=== PATIENT | female | born 1955 | race African-American/Black ===

== ENCOUNTER 2019-03-07 20:23 | Inpatient (IN) ==
[2019-03-07 22:02] LABS: BASO# 0.02 X1000 (0.0-0.2); BASO% 0.3 % (0.0-0.8); EOS# 0.15 X1000 (0.0-0.7); EOS% 1.9 % (0.0-10.0); HEMATOCRIT 37.9 % (37.0-47.0); IMM GRAN# 0.01 X1000 (0.0-0.04); IMM GRAN% 0.1 % (0.0-0.5); LYMPH# 2.74 X1000 (1.2-3.4); LYMPH% 34.4 % (20.5-51.1); MCH 25.3 PG (27-31); MCHC 34.3 g/dL (33-37); MCV 73.7 FL (81-99); MONO# 0.47 X1000 (0.11-0.59); MONO% 5.9 % (1.7-9.3); MPV 11.2 FL (7.4-10.4); NEUT# 4.58 X1000 (1.4-6.5); NEUT% 57.4 % (42.2-75.2); PLT 190 X1000 (130-400); RBC 5.14 XMIL (4.2-5.4); RDW 15.4 % (11.5-14.5); WBC 7.97 X1000 (4.8-10.8)
[2019-03-07 22:17] LABS: INR 1.76; PROTIME 21.4 Seconds (11.0-16.0); PTT 32.6 Seconds (22.3-41.8)
[2019-03-07 22:31] LABS: ALBUMIN 4.2 g/dL (3.5-5.0); CALCIUM 9.5 mg/dL (8.8-10.2); CREATININE 1.5 mg/dL (0.5-0.9); POTASSIUM 4.3 mmol/L (3.5-5.1); TOTAL BILIRUBIN 0.3 mg/dL (0.20-1.00); TOTAL PROTEIN 7.5 g/dL (6.3-8.3)
[2019-03-07] MEDS ORDERED: LOVENOX 1 MG/KG SUBQ ONE (23:49)
[2019-03-08] MEDS ORDERED: LOVENOX SUBQ ONE (00:15)
[2019-03-08] MEDS ORDERED: ZOFRAN PO PRN (00:40)
[2019-03-08] MEDS ORDERED: TYLENOL PO PRN (00:40)
[2019-03-08] MEDS ORDERED: NS 1,000 ML IV ONE (00:40)
[2019-03-08] MEDS ORDERED: NORCO-7.5 PO ONE (00:43)
--- NOTE | 2019-03-08 00:49 | PROVIDER DOCUMENTATION ---
This chart was entered by Kate Guerrero Scribe, acting as scribe for Gilberto Reyes DO. HPI-Respiratory General - General Chief Complaint: Breast Pain Stated Complaint: CP/LUNG BLOOD CLOTS Time Seen by Provider: 03/07/19 20:45 Source: patient Allergies/Adverse Reactions: Patient Allergies Allergy/AdvReac Type Severity Reaction Status Date / Time aspirin Allergy Intermediate asthma Verified 03/07/19 20:47 attack Iodinated Contrast- Oral and AdvReac Unknown Verified 03/07/19 20:47 IV Dye [IV Dye] Home Medications: Home Medication List Medication Instructions Recorded Confirmed Last Taken Type Alprazolam [Xanax] 1 mg PO BID 05/10/14 03/08/19 01/06/16 09:00 History Albuterol Sulfate [Proair Hfa] 2 puff IH PRN PRN 12/15/14 03/08/19 12/08/15 09:00 History Insulin Detemir [Levemir Flextouch] 32 unit SQ HS 01/11/15 03/08/19 01/05/16 21:00 History Insulin Regular, Human [Novolin R] 1 each SUBQ DIRECTED 01/11/15 03/08/19 12/12/15 07:00 History Docusate Sodium [Colace] 100 mg PO BID #60 capsule 05/14/15 03/08/19 01/06/16 09:00 Rx Budesonide [Pulmicort] 0.25 mg INH PRN PRN 12/08/15 03/08/19 01/06/16 10:00 History Cilostazol [Pletal] 50 mg PO BID 12/08/15 01/07/16 01/06/16 09:00 History Diclofenac 1% Gel [Voltaren 1% Gel] 4 gm TOP BID 12/08/15 03/08/19 01/06/16 09:00 History Furosemide 40 mg PO DAILY 12/08/15 01/07/16 01/06/16 09:00 History Potassium Chloride 10 meq PO DAILY 12/08/15 03/08/19 01/06/16 09:00 History Warfarin [Coumadin] 3 mg PO QHS 12/08/15 03/08/19 01/05/16 20:00 History Hydrocodone/APAP 7.5 mg/325 mg 1 each PO Q4H PRN PRN #60 tablet 12/17/15 01/07/16 Unknown Rx [[place]-7.5] Phytonadione [Mephyton] 1 each PO DIRECTED 01/07/16 01/07/16 01/03/16 14:15 History Polyethylene Glycol 3350 [Miralax] 1 each PO DAILY 01/07/16 01/07/16 01/06/16 09:00 History Hydrocodone/APAP 5 mg/325 mg 1 - 2 tab PO Q6H PRN PRN #10 tablet 03/15/16 03/08/19 Unknown Rx [[place]-5] Meclizine HCl [Antivert] 25 mg PO Q6-8H PRN PRN #30 tablet 05/02/16 03/08/19 Unknown Rx Albuterol [Albuterol Neb] 2.5 mg INH Q4H PRN PRN #30 neb 11/12/17 Unknown Rx Doxycycline 100 mg PO BID #20 tab 11/12/17 Unknown Rx Gabapentin [Neurontin] 300 mg PO TID #90 capsule 01/21/18 Unknown Rx - History of Present Illness-Resp Nature of Presenting Problem: 63 yof presents to ED c/o pain in right side of chest that radiates to back and SOB for about 3hours today. Pt reports she has previous hx of PE x2. Pt denies cough, fever or sinus problems. Pt has hx of COPD, asthma and DM. Severity in ED: reports: moderate Onset/Duration: reports: 1-3 hours ago Timing: reports: still present Cough Quality/Degree: reports: no cough Modifying Factors: worse with: deep breath Review of Systems - Adult - REVIEW OF SYSTEMS - ADULT Constitutional: reports: see HPI. denies: chills, fever, fatique Eyes: reports: no symptoms reported Ears, Nose, Mouth & Throat: reports: no symptoms reported Cardiovascular: reports: see HPI, chest pain, edema. denies: palpitations, syncope Respiratory: reports: see HPI, shortness of breath, wheezing. denies: cough Gastrointestinal: reports: no symptoms reported Genitourinary: reports: no symptoms reported Musculoskeletal: reports: see HPI, back pain. denies: muscle weakness Integumentary: reports: no symptoms reported Neurological: reports: no symptoms reported Psychiatric: reports: no symptoms reported Endocrine: reports: no symptoms reported Hematologic/Lymphatic: reports: no symptoms reported Allergic/Immunologic: reports: no symptoms reported All Other Systems: Reviewed and Negative Past History - Adult - PAST MEDICAL HISTORY-ADULT Review of Records: reports: Nursing Assessment Review, Medications Reviewed, Social history reviewed & non-contributory. Major Childhood Illnesses: reports: denies history Cardiovascular: reports: HTN, hyperlipidemia Respiratory: reports: asthma, COPD, sleep apnea Gastrointestinal: reports: diverticulosis Obstetrical/Gynecological: reports: denies history Genitourinary: reports: denies history Musculoskeletal: reports: arthritis (osteo) Neurological: reports: denies history Endocrine/Immune: reports: Diabetes Other Conditions: reports: denies history - PRIOR SURGERIES/PROCEDURES Surgical/Procedure History: reports: cholecystectomy, hysterectomy, orthopedic (extremity), gastric bypass - IMMUNIZATION STATUS Childhood Immunizations: See Nurse Assessment Flu Vaccine: See Nurse Assessment - FAMILY HISTORY Family History: reviewed, not pertinent Physical Exam-General - PHYSICAL EXAM-ADULT Initial Vital Signs Reviewed: Yes - CONSTITUTIONAL General Appearance: appears well - EYES Eyes: PERRL/EOMI, pink conjunctivae. negative: photophobia - HEAD, EARS, NOSE, MOUTH & THROAT HENMT: moist mucous membranes, normal ENT inspection. negative: angioedema, dental decay - NECK Neck: negative: Brudzinski's sign, carotid bruit - RESPIRATORY Respiratory: decreased breath sounds (base, bilaterally), wheezing (expiratory, bilaterally). negative: chest non-tender (costichondral sternal tenderness), crackles, rales - CARDIOVASCULAR Cardiovascular: regular rate, rhythm, no gallop, JVD (1cm), systolic murmur (1/6), PMI displaced laterally. negative: no edema, bradycardia, tachycardia - GASTROINTESTINAL (ABDOMEN) Abdominal Exam: normal bowel sounds, non tender, soft, no organomegaly. negative: rigid, rebound, tenderness - LYMPHATIC Lymphatic: no adenopathy. negative: striations - MUSCULOSKELETAL Back Exam: CVA tenderness (right), kyphosis, vertebral tenderness (L3,4,5;S1;Left si joint;right si joint(worse); Left siatica and right siatica with palpation) Extremity: tenderness (left inner thigh; 30 degree staright leg raise, left), other (+ martinez sign left; 42cm calf left; 40cm right calf) - SKIN Integumentary: warm/dry. negative: diaphoresis, jaundice - PSYCHIATRIC Psych/Mental Status: normal mood/affect, normal thought content, normal thought process, oriented x 3. negative: anxious - HEART Score HEART Score: History: Moderately Suspicious HEART Score: ECG: Normal HEART Score: Age: > or = 65 Years HEART Score: Risk Factors for Atherosclerotic Disease: > or = 3 Risk Factors or History of Atherosclerotic Disease HEART Score: Troponin: < or = Normal Limit Total HEART Score:: 5 Progress - PLAN OF CARE/RESULTS Progress/Plan/Lab Results: Vital Signs - 8 hr 03/07/19 20:28 03/07/19 20:46 Temperature 98 F Pulse Rate 80 82 Respiratory Rate 18 20 Blood Pressure 166/91 140/79 O2 Sat by Pulse Oximetry 98 97 Laboratory Results - last 24 hr 03/07/19 03/07/19 03/07/19 21:00 21:00 21:00 WBC 7.97 RBC 5.14 Hgb 13.0 Hct 37.9 MCV 73.7 L MCH 25.3 L MCHC 34.3 RDW Std Deviation 15.4 H Plt Count 190 MPV 11.2 H Immature Gran % (Auto) 0.1 Neut % (Auto) 57.4 Lymph % (Auto) 34.4 [place] % (Auto) 5.9 Eos % (Auto) 1.9 Baso % (Auto) 0.3 Immature Gran # (Auto) 0.01 Neut # (Auto) 4.58 Lymph # (Auto) 2.74 [place] # (Auto) 0.47 Eos # (Auto) 0.15 Baso # (Auto) 0.02 Segmented Neutrophils Not Reportable PT INR PTT (Actin FS) Sodium 138 Potassium 4.3 Chloride 101 Carbon Dioxide 25 Anion Gap 12 BUN 33 H Creatinine 1.5 H Estimated GFR/1.73 m2 35 BUN/Creatinine Ratio 22 Glucose 136 H Calculated Osmolality 285 Calcium 9.5 Total Bilirubin 0.30 AST 15 ALT 10 Alkaline Phosphatase 150 H Creatine Kinase 64 Troponin T Yuq-D-Tbuaulysyau Pept 295 Total Protein 7.5 Albumin 4.2 Globulin 3.0 Albumin/Globulin Ratio 1.0 03/07/19 03/07/19 21:00 21:00 WBC RBC Hgb Hct MCV MCH MCHC RDW Std Deviation Plt Count MPV Immature Gran % (Auto) Neut % (Auto) Lymph % (Auto) [place] % (Auto) Eos % (Auto) Baso % (Auto) Immature Gran # (Auto) Neut # (Auto) Lymph # (Auto) [place] # (Auto) Eos # (Auto) Baso # (Auto) Segmented Neutrophils PT 21.4 H INR 1.76 PTT (Actin FS) 32.6 Sodium Potassium Chloride Carbon Dioxide Anion Gap BUN Creatinine Estimated GFR/1.73 m2 BUN/Creatinine Ratio Glucose Calculated Osmolality Calcium Total Bilirubin AST ALT Alkaline Phosphatase Creatine Kinase Troponin T < 0.010 Npt-V-Xvvdxhlkmnl Pept Total Protein Albumin Globulin Albumin/Globulin Ratio Orders Category Date Time Status Admit - [facility] Routine AdmDCTranf 03/08/19 00:40 Active IV Insertion ORDERED Care 03/07/19 21:24 Completed Resuscitation Status Routine Care 03/08/19 00:40 Ordered Vital Signs Order ARRIVAL TO ROOM Care 03/08/19 00:40 Active Z-Document. for Tele Applied ORDERED Care 03/08/19 00:41 Active Diabetic Diet Diet 03/08/19 00:42 Active CHEST-PORTABLE [RAD] Stat Exams 03/07/19 21:21 Taken LUNG SCAN / VQ [NM] Stat Exams 03/08/19 00:43 Ordered CBC WITH ELECTRONIC DIFF [HEME] Stat Lab 03/07/19 21:00 Completed CK PROFILE [SP CHEM] Stat Lab 03/07/19 21:00 Completed COMPREHENSIVE METABOLIC PANEL [CHEM] Stat Lab 03/07/19 21:00 Completed PRO B-NATRIURETIC PEPTIDE Stat Lab 03/07/19 21:00 Completed PROTIME WITH INR [COAG] Stat Lab 03/07/19 21:00 Completed PTT [COAG] Stat Lab 03/07/19 21:00 Completed TROPONIN T Routine Lab 03/08/19 00:46 Ordered TROPONIN T Stat Lab 03/07/19 21:00 Completed TROPONIN T Stat Lab 03/08/19 00:46 Uncollected 0.9% Sodium Chloride Inj [Ns] 1,000 ml Med 03/08/19 00:40 Active IV 75 mls/hr Acetaminophen [Tylenol] Med 03/08/19 00:40 Active 650 mg PO Q6H PRN PRN Albuterol 2.5MG/Ipratrop 0.5MG [Duoneb (A & A)] Med 03/08/19 03:30 Active 3 ml INH RTQ4H Enoxaparin [Lovenox] Med 03/08/19 00:15 Discontinued 110 mg SUBQ NOW ONE Hydrocodone/APAP 7.5 mg/325 mg [[place]-7.5] Med 03/08/19 00:43 Discontinued 1 each PO NOW ONE Ondansetron [Zofran] Med 03/08/19 00:40 Active 4 mg PO Q6H PRN PRN Aerosol Treatments Routine Oth 03/08/19 00:42 Completed Aerosol Treatments Stat Oth 03/08/19 00:42 Completed Oxygen Device Routine Oth 03/08/19 00:41 Completed Telemetry [OM.EQ] Routine Oth 03/08/19 00:40 Active Transfer/Admit Order [TRANSFER] Routine Transfer 03/08/19 00:39 Ordered Result Diagrams: 03/07/19 21:00 03/07/19 21:00 - REASSESSMENT Reassessment #1 Time Reassessed: 00:39 Status: improving (WITH O2 NC-2LPM, NEB TX DISCUSSED LABS/XRAY WITH PATIENT -- DISCUSSED INPATIENT R/O PE PATIENT AGREES TO STAY FOR W/U) Departure - Departure Date of Disposition Decision: 03/08/19 Time of Disposition Decision: 00:35 DIAGNOSIS: Chest pain made worse by breathing COPD (chronic obstructive pulmonary disease) Qualifiers: COPD type: unspecified COPD Qualified Code(s): J44.9 - Chronic obstructive pulmonary disease, unspecified RAD (reactive airway disease) Qualifiers: Asthma severity: mild Asthma persistence: intermittent Asthma complication type: with acute exacerbation Qualified Code(s): J45.21 - Mild intermittent asthma with (acute) exacerbation Dvt femoral (deep venous thrombosis) Qualifiers: Chronicity: chronic Laterality: left Qualified Code(s): I82.512 - 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 The physician did have a face to face encounter with the patient. This chart was documented by the indicated scribe, (Kate Guerrero, Christy) and accurately reflects the services I performed and decisions made by , Gilberto Reyes DO, as attested by the provider's signature.
[2019-03-08] MEDS: DUONEB (A & A) INH SCH ×5 (03:31→20:08)
[2019-03-08 04:59] LABS: BILIRUBIN URINE NEGATIVE (NEGATIVE); BLOOD URINE NEGATIVE (NEGATIVE); CLARITY CLEAR (CLEAR); COLOR YELLOW; GLUCOSE URINE NEGATIVE (NEGATIVE); KETONE URINE NEGATIVE (NEGATIVE); LEUKOCYTES URINE 1+ (NEGATIVE); NITRITE URINE NEGATIVE (NEGATIVE); PH URINE 6.5; PROTEIN URINE NEGATIVE (NEGATIVE); UROBILINOGEN URINE NORMAL
[2019-03-08 05:00] LABS: URINE SOURCE CLEAN CATCH
[2019-03-08 05:02] LABS: URINE BACTERIA 1+ /HFP; URINE EPITHELIAL CELLS <10 /HPF (<10); URINE RBC <10 /HPF (<10); URINE WBC <10 /HPF (<10)
--- NOTE | 2019-03-08 07:47 | Diag Imaging Result Doc PS360 ---
CHEST-PORTABLE - 03/07/2019 INDICATION: CP/SOB COMPARISON: 11/26/2017 FINDINGS: There are some linear opacities in the lung bases bilaterally similar to prior. These suggests atelectasis or scarring. No dense infiltrates. No pneumothorax or pleural effusion. Heart size and pulmonary vascularity is normal. IMPRESSION: Linear atelectasis or scarring in the lung bases stable from prior. Electronically signed by Nate Cruz 03/08/2019 7:45 AM
[2019-03-08 13:58] LABS: INR 1.68; PROTIME 20.6 Seconds (11.0-16.0)
[2019-03-08] MEDS: NORCO-10 PO PRN (14:47)
[2019-03-08] MEDS ORDERED: DUONEB (A & A) INH PRN (14:50)
[2019-03-08] MEDS: LIDODERM TOP SCH (16:03)
--- NOTE | 2019-03-08 16:05 | HISTORY AND PHYSICAL ---
CHIEF COMPLAINT: Right breast pain. HISTORY OF PRESENT ILLNESS: This is a 63-year-old female who presents to the emergency room complaining of pain to her right breast area. She describes this pain as an aching type pain it is present that she rates is like a 2/10 with cough, deep breathe movement and palpation the pain does increase to a 4/10. She denies any recent injury, heavy lifting, pushing or pulling. She does have a history of a pulmonary embolus that was diagnosed in April 2015 for which she has been on warfarin. INR in the emergency room was 1.7. She was given Lovenox 1 mg/kg. PAST MEDICAL HISTORY: Pulmonary embolism, chronic back pain, hypertension, COPD, chronic obesity, diverticulosis, diabetes mellitus, sleep apnea. PREVIOUS SURGICAL HISTORY: Cholecystectomy, hysterectomy and gastric bypass. ALLERGIES: Aspirin, IVP dye. HOME MEDICATIONS: Home medication will be reviewed by the nursing staff and once verified will review and restart as appropriate. REVIEW OF SYSTEMS: Discussed with patient with pertinent positives stated in the HPI. She denied any syncope, dizziness, palpitations, shortness of breath, cough, PND, orthopnea, any nausea, vomiting, diarrhea, constipation, black or bloody vomitus or stools, any hematuria, dysuria, frequency, urgency. PHYSICAL EXAMINATION: GENERAL: This is a 63-year-old female who is sitting up in the bed in no distress. VITAL SIGNS: Blood pressure is 129/60 with a heart rate of 69, respirations are 18, temperature is 98.2 degrees oral with O2 saturations that are 100% on 1 L nasal cannula. HEENT: Pupils equal, round, react to light. EOMs are intact, sclerae anicteric. Head is normocephalic, atraumatic. Mucous membranes are moist. NECK: Supple, trachea midline. CARDIOVASCULAR: Regular rate and rhythm. S1 and S2 are appreciated. She does have about a 1 to 2/6 systolic murmur. She has no lower extremity edema. Calves are nontender to palpation bilateral with peripheral pulses palpable x4 extremities. PULMONARY: She does have some scattered expiratory wheezes. Chest rises and falls symmetric with respiration. Chest wall is tender to palpation, particularly on the right. GASTROINTESTINAL: Abdomen is soft, nontender, nondistended. Bowel sounds in all 4 quadrants. NEUROLOGIC: She is alert, oriented x3. LABS: WBC is 7.9 with hemoglobin 13, hematocrit 37.9 and platelets of 190,000. INR is 1.76. Sodium 138, potassium 4.3, BUN 33, creatinine 1.5 with a glucose of 136. Troponins are negative on multiple occasions. Urinalysis is essentially negative. Chest x-ray revealed linear atelectasis or scarring in lung bases stable from prior compared to November 2017. ASSESSMENT AND PLAN: 1. Chronic obstructive pulmonary disease, acute on chronic exacerbation. The patient has been admitted to the medical-surgical floor and placed on telemetry which will continue. We will give DuoNeb q.4 hours with q.2 hours p.r.n. as she has been wheezing, will give steroids to taper, supplemental oxygen as needed and follow. 2. Chest pain. This pain is pleuritic in nature. It can be reproduced by palpation, cough and deep breathing. She does have a history of chronic pain, at present will continue her [place] 10 mg 3 times a day p.r.n. Continue telemetry. 3. Chronic back pain. She is tender to palpation in the L3, 4, 5 and S1 vertebral areas. We will use lidocaine patch as well as her home pain medication regimen. Hopefully steroids will assist with this pain. 4. History of bilateral lower lobe pulmonary embolism. We will continue her warfarin, in review of her labs her INR was 1.7. Will give Coumadin 5 mg p.o. tonight. Recheck INR in the morning. 5. Further treatments pending hospital course. Dictated by IVONNE Caldwell for Clarence Zuñiga MD cc: IVONNE Caldwell MD
[2019-03-08] MEDS: SOLU-MEDROL IV SCH (16:07)
--- NOTE | 2019-03-08 18:52 | HISTORY AND PHYSICAL ---
ADDENDUM: Patient seen and examined. She has a known history of blood clots in her lungs. Presented to the hospital. Her INR is low. We will place her on Lovenox, replace her Coumadin, will increase the dose. We will continue to follow. Further orders as needed. cc: Clarence Zuñiga MD
[2019-03-08] MEDS ORDERED: COUMADIN PO ONE (21:00)
[2019-03-08] MEDS: COGENTIN PO SCH (21:17)
[2019-03-08] MEDS: XANAX PO SCH (21:17)
[2019-03-08] MEDS: PRAVACHOL PO SCH (21:17)
[2019-03-08] MEDS: LEVEMIR INSULIN *HA SUBQ SCH (21:24)
[2019-03-09] MEDS: SOLU-MEDROL IV SCH ×3 (00:20→16:25)
[2019-03-09] MEDS: NORCO-10 PO PRN ×2 (00:23→12:30)
[2019-03-09] MEDS: XANAX PO SCH ×3 (07:56→22:15)
[2019-03-09] MEDS: KLOR-CON PO SCH ×2 (07:57→08:04)
[2019-03-09] MEDS: LINZESS PO SCH ×2 (07:57→08:04)
[2019-03-09] MEDS: LASIX PO SCH ×2 (07:57→08:04)
[2019-03-09] MEDS: COZAAR PO SCH ×2 (07:57→08:04)
[2019-03-09] MEDS: LIDODERM TOP SCH (07:59)
[2019-03-09] MEDS ORDERED: ZOFRAN ODT PO PRN (10:16)
--- NOTE | 2019-03-09 12:27 | Diag Imaging Result Doc PS360 ---
KUB ABDOMEN - 03/09/2019 INDICATION: pain COMPARISON: 11/26/2017 FINDINGS: Stable surgical changes in the upper quadrants of the abdomen. There is a nonobstructive bowel gas pattern. No free air or abnormal calcifications. No significant constipation. IMPRESSION: No acute disease. Electronically signed by Nate Cruz 03/09/2019 12:25 PM
[2019-03-09 17:29] LABS: INR 1.89; PROTIME 22.6 Seconds (11.0-16.0)
[2019-03-09] MEDS ORDERED: LOVENOX SUBQ ONE (17:55)
--- NOTE | 2019-03-09 18:23 | PROGRESS NOTE ---
DATE: 03/09/2019 SUBJECTIVE: Patient still having left-sided pain, left hip pain, left flank pain, still having right-sided pain when she takes a deep breath or when she attempts to cough. PHYSICAL: Temperature 97.8, pulse 68, respiratory 20, BP 114/64.General: Patient is awake. She is in no current respiratory distress. HEENT: Normocephalic. Neck: Supple. CARDIOVASCULAR: Regular rate. Chest: Relatively clear, nonlabored although decreased due to pain with inspiration. Abdomen: Soft, nondistended. Extremities: Moves all extremities. ASSESSMENT: 1. Chronic obstructive pulmonary disease with questionable mild exacerbation. 2. Chest pain likely secondary to her known pulmonary emboli. 3. History of pulmonary emboli. INR remains low at 1.9. 4. Chronic back pain. 5. Left hip pain. PLAN: Will continue patient in hospital on Lovenox, continue to follow. Cannot unfortunately do a CT as she is allergic to IV contrast dye as well as has chronic renal failure. V/Q scan would most likely be of little use given the fact that she has a known pulmonary emboli. Hopefully patient's INR will increase and she can be discharged home soon. cc: Clarence Zuñiga MD
[2019-03-09] MEDS: PRAVACHOL PO SCH (22:15)
[2019-03-09] MEDS: LEVEMIR INSULIN *HA SUBQ SCH (22:16)
[2019-03-09] MEDS: COGENTIN PO SCH (22:17)
[2019-03-10] MEDS: NORCO-10 PO PRN ×2 (03:27→13:49)
[2019-03-10 07:02] LABS: HEMATOCRIT 34.6 % (37.0-47.0); HEMOGLOBIN 11.4 g/dL (12.0-16.0); MCH 24.9 PG (27-31); MCHC 32.9 g/dL (33-37); MCV 75.5 FL (81-99); MPV 11.5 FL (7.4-10.4); RBC 4.58 XMIL (4.2-5.4); RDW 15.5 % (11.5-14.5); WBC 6.04 X1000 (4.8-10.8)
[2019-03-10 07:39] LABS: ALBUMIN 3.4 g/dL (3.5-5.0); CALCIUM 8.9 mg/dL (8.8-10.2); CREATININE 1.2 mg/dL (0.5-0.9); POTASSIUM 4.2 mmol/L (3.5-5.1); TOTAL BILIRUBIN 0.3 mg/dL (0.20-1.00); TOTAL PROTEIN 6.7 g/dL (6.3-8.3)
[2019-03-10 07:43] LABS: PROTIME 23.6 Seconds (11.0-16.0)
[2019-03-10] MEDS: LIDODERM TOP SCH ×2 (09:50→09:57)
[2019-03-10] MEDS: XANAX PO SCH (09:50)
[2019-03-10] MEDS: LINZESS PO SCH ×2 (09:51→09:58)
[2019-03-10] MEDS: LASIX PO SCH (09:51)
[2019-03-10] MEDS: COZAAR PO SCH (09:51)
[2019-03-10] MEDS: KLOR-CON PO SCH (09:52)
[2019-03-10] MEDS: SOLU-MEDROL IV SCH ×4 (09:54→15:49)
[2019-03-10 15:20] VITALS: BP 115/61
--- NOTE | 2019-03-10 16:30 | Diag Imaging Result Doc PS360 ---
EXAM: CT THORAX W/O CONTRAST HISTORY: chest pain TECHNIQUE: CT chest without contrast COMPARISON: 05/09/2011 FINDINGS: No pleural effusions. No cardiomegaly. No thoracic aortic aneurysm. There is a 2.1 x 2.3 cm right lower lobe nodule on the current study. This appears to occlude one of the segmental bronchial branches in the right lower lobe. There is an additional oblong area which is more flat, but measures 1.3 x 2.1 cm occluding another branch anteriorly. There is atelectasis in the right lower lobe. No consolidation. No bronchiectasis. There is a left upper lobe calcified granuloma. There are small subcarinal lymph nodes. IMPRESSION: Right lower lobe nodular areas. Bronchoscopy suggested. This exam was performed using automated exposure control, adjustment of mA or kV according to patient size, and/or use of iterative reconstruction technique. Electronically signed by Catracho Hernandez 03/10/2019 4:28 PM
[2019-03-10] MEDS ORDERED: COUMADIN PO SCH (21:00)
--- NOTE | 2019-03-12 14:04 | DISCHARGE SUMMARY ---
ADMISSION DATE: 03/08/2019 DISCHARGE DATE: 03/10/2019 PRIMARY CARE PHYSICIAN: Dr. Jose G Brown. ADMISSION DIAGNOSES: 1. Acute on chronic obstructive pulmonary disease exacerbation. 2. Chest pain, pleuritic in nature. 3. Chronic back pain. 4. History of bilateral lower lobe pulmonary emboli subtherapeutic on anticoagulation. DISCHARGE DIAGNOSES: 1. Acute chronic obstructive pulmonary disease exacerbation, mildly improved. 2. Chest pain, pleuritic in nature and reproducible by palpation, cough and deep breathing with a history of chronic pain stable. 3. Chronic back pain. 4. History of bilateral lower lobe pulmonary emboli on chronic anticoagulation, now therapeutic. SUMMARY OF FINDINGS: This is a 63-year-old female who presented to the emergency room with complaints of pain to her right breast area. I described the pain as an aching type pain that she rated a 2/10 with cough and deep breath. With palpation, the pain increased to a 4/10. She had a history of pulmonary emboli that was diagnosed in April of 2015. She has been on Coumadin, but in the emergency room her INR was subtherapeutic at 1.7. We bridged her with Lovenox 1 mg/kg while still remaining on her Coumadin. Her INR came up to 2 on the day of discharge. She was felt to be therapeutic at that time. We did an abdominal x- ray on 03/09/2019 that showed no acute disease. She had a chest CT on 03/10/2019 that showed a right lower lobe nodular area, and a bronchoscopy was suggested. It is felt that she can follow up outpatient with her fish grader to follow up on that. It is felt now that she can safely be discharged home. DISCHARGE MEDICATIONS: 1. Alprazolam 1 mg p.o. b.i.d. 2. Cogentin 1 mg p.o. at bedtime. 3. Lasix 40 mg p.o. daily. 4. Bone Gap 10 1 p.o. t.i.d. p.r.n. 5. Bone Gap 5 1 to 2 p.o. q.6 hours p.r.n. 6. Levemir 32 units subcutaneous at bedtime. 7. Linzess 145 mcg p.o. daily. 8. Losartan 25 mg p.o. daily. 9. Meclizine 25 mg p.o. q. 6 to 8 hours p.r.n. 10. Potassium 10 mEq p.o. daily. 11. Pravachol 80 mg p.o. at bedtime. 12. Coumadin 3 mg p.o. at bedtime. FOLLOW-UP: She will have home health services. She will follow up with her primary care physician in 1 to 2 weeks. Follow up with pulmonology for possible bronchoscopy. Call to obtain date and time for an appointment. TIME SPENT WITH PATIENT: 33 minute discharge. Dictated by IVONNE Olmos for Javi Patterson MD Addendum: Patient seen and examined by myself. Agree with IVONNE note. It reflects my assessment and plan. Patient is being discharged in stable condition. Follow up with subspecialist as we mentioned above. cc: MD Pari Farmer CRNP Cesar Garcia-Rodriguez, MD [facility]
== END 2019-03-10 18:12 | disposition home health service (06) | DRG 204 ==
LOC: P.ED 20:23 → P.MEDSURG 20:23 → SUATTDRO 03-08 01:01 → OBSVTOIN 03-08 01:01
PROVIDERS: ATTEND Internal Medicine
CPT/HCPCS: 71010; 71045; 71250; 74000; 74018; 80053; 81001; 82550; 82948; 83880; 84484; 85025; 85027; 85379; 85610; 85730; 87088; 94640; 94761; 96372; 99285; A9270; J1650; J1815; J2930; J7030; XXXXX

== ENCOUNTER 2019-09-02 12:14 | Inpatient (IN) ==
--- NOTE | 2019-09-02 13:28 | PROVIDER DOCUMENTATION ---
HPI-General Adult - General Chief Complaint: Chest Pain Stated Complaint: CP Time Seen by Provider: 09/02/19 12:50 Source: patient, family Allergies/Adverse Reactions: Patient Allergies Allergy/AdvReac Type Severity Reaction Status Date / Time Iodinated Contrast Media Allergy Severe ANAPHYLAXIS Verified 08/09/19 08:49 [IV Dye] aspirin Allergy Intermediate asthma Verified 08/09/19 08:49 attack Home Medications: Home Medication List Medication Instructions Recorded Confirmed Last Taken Type Alprazolam [Xanax] 1.5 mg PO HS 08/09/19 08/27/19 08/26/19 History Benztropine Mesylate 1 mg PO DAILY 08/09/19 08/27/19 08/27/19 History Furosemide [Lasix] 60 mg PO DAILY 08/09/19 08/27/19 08/27/19 History Gabapentin [Neurontin] 100 mg PO BID 08/09/19 08/27/19 08/27/19 History Hydrocodone/APAP 10 mg/325 mg 1 ea PO Q6H PRN PRN 08/09/19 08/27/19 08/27/19 History [Rogers-10] Insulin Glargine,Hum.rec.anlog 132 units SQ HS 08/09/19 08/27/19 08/26/19 History [Lantus Solostar] Linaclotide [Linzess] 145 mcg PO DIRECTED PRN PRN 08/09/19 08/27/19 08/26/19 History Morphine Sulfate [Morphine Sulfate 15 mg PO HS 08/09/19 08/27/19 08/26/19 History ER] Omeprazole 40 mg PO DAILY 08/09/19 08/27/19 08/27/19 History Prochlorperazine Maleate 10 mg PO DIRECTED PRN PRN 08/09/19 08/27/19 Unknown History Promethazine [Phenergan] 12.5 mg PO DIRECTED PRN PRN 08/09/19 08/27/19 08/08/19 History - History of Present Illness -Gen Adult Nature of Presenting Problems: This is a 64yo female who presents with CC of chest pain and shortness of breath. The patient has a PMH of metastatic lung cancer, currrently recieving chemotherapy. The patient reports 2 day onset of central non radiating chest pain that is worse with movement. The patient reports remote history of AR, but denies needing stents. Location of Pain/Injury: reports: chest Pain Radiation: reports: no radiation Quality of Pain: reports: pressure, tightness Onset/Duration: reports: 2 days ago Timing: reports: still present Modifying Factors: improves with: movement (worse with walking, improves laying flat) Associated Symptoms: reports: nausea, other (sweats) Review of Systems - Adult - REVIEW OF SYSTEMS - ADULT Constitutional: reports: fever Eyes: reports: discharge Ears, Nose, Mouth & Throat: reports: no symptoms reported Cardiovascular: reports: chest pain, edema Respiratory: reports: shortness of breath Gastrointestinal: denies: abdominal pain Genitourinary: reports: no symptoms reported. denies: dysuria Musculoskeletal: reports: joint pain (with chemo) Integumentary: reports: rash (dry skin on LE) Neurological: reports: no symptoms reported Psychiatric: reports: no symptoms reported Endocrine: reports: no symptoms reported Hematologic/Lymphatic: reports: no symptoms reported Allergic/Immunologic: reports: no symptoms reported Past History - Adult - PAST MEDICAL HISTORY-ADULT Review of Records: reports: Old Records Reviewed Major Childhood Illnesses: reports: denies history Cardiovascular: reports: HTN, hyperlipidemia Respiratory: reports: asthma, COPD, cancer (lung), sleep apnea Gastrointestinal: reports: diverticulosis Obstetrical/Gynecological: reports: denies history Genitourinary: reports: denies history Musculoskeletal: reports: arthritis (osteo) Neurological: reports: denies history Psychiatric: reports: denies history Endocrine/Immune: reports: Diabetes, immunosuppression Other Conditions: reports: other cancer - PRIOR SURGERIES/PROCEDURES Surgical/Procedure History: reports: cholecystectomy, hysterectomy, orthopedic (extremity), gastric bypass - IMMUNIZATION STATUS Childhood Immunizations: See Nurse Assessment Flu Vaccine: See Nurse Assessment - FAMILY HISTORY Family History: reviewed, not pertinent Physical Exam-General - PHYSICAL EXAM-ADULT Exam Limited by: Obesity Initial Vital Signs Reviewed: Yes - CONSTITUTIONAL General Appearance: alert, no apparent distress - EYES Eyes: negative: conjuctival exudate - HEAD, EARS, NOSE, MOUTH & THROAT HENMT: normocephalic/atraumatic. negative: moist mucous membranes (dry mucous membranes) - NECK Neck: normal inspection - RESPIRATORY Respiratory: decreased breath sounds, wheezing (noted anterior) - CARDIOVASCULAR Cardiovascular: regular rate, rhythm, other (trace bilateral lower extremity edema) - GASTROINTESTINAL (ABDOMEN) Abdominal Exam: non tender, soft. negative: guarding - SKIN Integumentary: warm/dry - NEUROLOGIC Neurologic: grossly normal - PSYCHIATRIC Psych/Mental Status: normal mood/affect, normal thought content, normal thought process Progress - PLAN OF CARE/RESULTS Progress/Plan/Lab Results: Vital Signs - 8 hr 09/02/19 12:30 Temperature 97.8 F Pulse Rate 87 Respiratory Rate 16 Blood Pressure 121/68 O2 Sat by Pulse Oximetry 95 Orders Category Date Time Status CHEST-2 VIEWS [RAD] Stat Exams 09/02/19 13:24 Ordered BNP [PRO B-NATRIURETIC PEPTIDE] Stat Lab 09/02/19 13:26 Uncollected CBC WITH DIFF [HEME] Stat Lab 09/02/19 13:23 Uncollected CK PROFILE [SP CHEM] Stat Lab 09/02/19 13:23 Uncollected COMPREHENSIVE METABOLIC PANEL [CHEM] Stat Lab 09/02/19 13:23 Uncollected D-DIMER [COAG] Stat Lab 09/02/19 13:23 Uncollected TROPONIN T Stat Lab 09/02/19 13:23 Uncollected Result Diagrams: 09/02/19 14:12 09/02/19 14:12 - REASSESSMENT Reassessment #1 Status: other (Discussed case with Hospitalist team who requested V/Q ordered. V/Q has been ordered. Patient will be admited to the hospitalist team.) - EKG 1 EKG Read and Signed by:: Rasheed Dillon (Read/Input Dr. Walter) EKG Interpretation (*Must complete 3 of following elements*): Abnormal Rate: 81 Rhythm: sinus [place]: normal QRS: normal [place] Interval: normal ST Wave: normal Departure - Departure Date of Disposition Decision: 09/02/19 Time of Disposition Decision: 15:58 DIAGNOSIS: Acute dyspnea Chest pain Qualifiers: Chest pain type: unspecified Qualified Code(s): R07.9 - Chest pain, unspecified Disposition: ADMITTED INPATIENT 09 Certified Medical Emergency: Emergent Condition: Serious Referrals and Follow-Ups: Jose G Brown MD [Primary Care Provider] - - Critical Care Note This patient required my direct & personal management of CC.: No Attestation - Physician/ CHAZ Attestation Patient care was provided by Advanced Practice Provider:: No The physician spent face to face time with patient:: Yes Advanced Practice Provider documentation review:: Supervising physician onsite and consulted in the evaluation and care of this patient. The physician did have a face to face encounter with the patient.
--- NOTE | 2019-09-02 13:54 | Diag Imaging Result Doc PS360 ---
EXAM: CHEST-2 VIEWS 09/02/2019 HISTORY: chest pain and shortness of breath TECHNIQUE: PA and lateral chest COMMENT: There is a platelike opacity in the right middle lobe and lower lobe. The latter was not evident on 08/09/2019. Otherwise are has been no significant change in the appearance of the chest. IMPRESSION: Subsegmental atelectasis in the right base. Electronically signed by Kelvin Domingo 09/02/2019 1:52 PM
[2019-09-02 14:25] LABS: HEMATOCRIT 30.7 % (37.0-47.0); HEMOGLOBIN 9.7 g/dL (12.0-16.0); LYMPH# 0.65 X1000 (1.2-3.4); LYMPH% 15.9 % (20.5-51.1); MCHC 31.6 g/dL (33-37); MCV 88.5 FL (81-99); MONO# 0.08 X1000 (0.11-0.59); MPV 9.9 FL (7.4-10.4); NEUT# 3.37 X1000 (1.4-6.5); NEUT% 82.1 % (42.2-75.2); PLT 187 X1000 (130-400); RBC 3.47 XMIL (4.2-5.4); RDW 19.7 % (11.5-14.5)
[2019-09-02 15:07] LABS: ALB/GLOB RATIO 1.1; ALBUMIN 3.5 g/dL (3.5-5.0); CALCIUM 8.6 mg/dL (8.8-10.2); CREATININE 1.5 mg/dL (0.5-0.9); POTASSIUM 4.5 mmol/L (3.5-5.1); TOTAL BILIRUBIN 0.21 mg/dL (0.20-1.00); TOTAL PROTEIN 6.7 g/dL (6.3-8.3)
--- NOTE | 2019-09-02 15:08 | EKG Report ---
Test Performed on : 09/02/2019 12:44:19 PM Test Reason : CP Blood Pressure : / mmHG Vent. Rate : 081 BPM Atrial Rate : 081 BPM P-R Int : 176 ms QRS Dur : 078 ms QT Int : 396 ms P-R-T Axes : 055 007 019 degrees QTc Int : 460 ms Sinus rhythm. with premature atrial complexes. Low voltage QRS Cannot rule out Anterior infarct , age undetermined Abnormal ECG When compared with ECG of 09-AUG-2019 08:31, (Unconfirmed) premature atrial complexes. are now present Minimal criteria for Anterior infarct are now present Unconfirmed Result
[2019-09-02] MEDS ORDERED: DUONEB (A & A) INH ONE (15:11)
[2019-09-02] MEDS ORDERED: MORPHINE IV ONE (15:11)
[2019-09-02] MEDS ORDERED: TYLENOL PO PRN ×2 (15:39→15:46)
[2019-09-02] MEDS ORDERED: ZOFRAN IV PRN (15:39)
[2019-09-02] MEDS ORDERED: NS 1,000 ML IV SCH (15:45)
[2019-09-02] MEDS: HUMULIN R SUBQ SCH ×2 (16:00→22:42)
[2019-09-02] MEDS: DUONEB (A & A) INH SCH ×2 (16:00→22:19)
--- NOTE | 2019-09-02 19:14 | Diag Imaging Result Doc PS360 ---
EXAM: LUNG SCAN / VQ HISTORY: possible P.E. TECHNIQUE: Nuclear medicine ventilation/perfusion lung scan COMPARISON: Plain films taken earlier FINDINGS: 39.8 mCi DTPA used for the ventilation images. 5.8 mCi MAA given intravenously for the perfusion images. No wedge shaped perfusion defect. No ventilation perfusion mismatch. IMPRESSION: Low probability for pulmonary embolus. Electronically signed by Catracho Hernandez 09/02/2019 7:11 PM
--- NOTE | 2019-09-02 19:50 | HISTORY AND PHYSICAL ---
PRIMARY CARE PHYSICIAN: Jose G Brown MD ONCOLOGIST: Dr. lAlen CHIEF COMPLAINT: "I have been having chest pain and shortness of breath for the past 4 days." HISTORY OF PRESENT ILLNESS: Ms. Nix is a 64-year-old female with a history of metastatic lung cancer on chemotherapy, diabetes mellitus type 2, morbid obesity, and anxiety disorder who presented to the ER today with a chief complaint of increasing shortness of breath and chest pain over the last 4 days. The patient states that she has been having more chest pain and shortness of breath over the last several days. She also complains of increased lower extremity swelling and decreased urine output over the same period of time. The patient states that she has been receiving chemotherapy for her metastatic lung cancer diagnosis. She denies having any fever or chills, but does describe a mild cough occasionally. In the ER, the patient was noted to have a D- dimer of 1.59. Initial cardiac enzymes were noted to be negative. The patient reports that she is currently on Eliquis for a history of pulmonary embolism diagnosed in 2014. The patient states that she has she is compliant with all of her home medications. PAST MEDICAL HISTORY: 1. Metastatic lung cancer on chemotherapy. 2. Morbid obesity. 3. History of pulmonary embolism on Eliquis. 4. Hypertension. 5. Diabetes mellitus type 2. 6. Chronic constipation. 7. Anxiety disorder. 8. Chronic kidney disease stage 3. 9. COPD. 10. Port placement. 11. LAP-BAND surgery. 12. Shoulder surgery. FAMILY HISTORY: Reviewed and noncontributory. SOCIAL HISTORY: The patient lives alone. The patient quit smoking tobacco products 10 years ago. The patient currently ambulates with a cane. She denies any alcohol or illicit drug use. ALLERGIES: IV contrast dye, which causes anaphylaxis; aspirin, which causes asthma. HOME MEDICATIONS: The patient's home medications are not available. REVIEW OF SYSTEMS: A 12-point review of systems has been performed. Please refer to the History of Present Illness for pertinent positives and negatives. PHYSICAL EXAMINATION: VITAL SIGNS: Temperature 97.8 degrees, blood pressure 121/68, heart rate 87, respirations 16, and O2 saturation 95% on room air. GENERAL: This is a morbidly obese female lying in bed in no acute distress. HEENT: Head is normocephalic, atraumatic. SKIN: No rashes, no lesions. Normal capillary refill. HEART: S1 and S2 normal. Regular rate and rhythm. LUNGS: Equal air entry bilaterally. No wheezing. No rales. No rhonchi. ABDOMEN: Positive bowel sounds. Soft, nontender, nondistended. EXTREMITIES: There is 1+ edema bilaterally. No cyanosis NEUROLOGIC: The patient is alert and oriented x4. LABS: White blood cell count 4.1, hemoglobin 9.7, hematocrit 30, platelets 187,000. D-dimer 1.59. Sodium 139, potassium 4.5, chloride 101, CO2 of 27, BUN 22, creatinine 1.5, glucose 238, calcium 8.6, AST 16, ALT 10. Troponin less than 0.01. ProBNP 1363. Albumin 3.5. RADIOGRAPHS: Chest x-ray shows atelectasis in the right lung base. ASSESSMENT AND PLAN: 1. Chest pain. We will rule out myocardial infarction, as well as pulmonary embolism. Serial troponins and EKG have been ordered. Also, a V/Q scan has been done. The report is currently pending. The patient is allergic to aspirin. We will continue on Eliquis. The patient has been started on supplemental oxygen. 2. Uncontrolled diabetes mellitus type 2. We will start the patient on sliding scale insulin, as well as a diabetic diet. We will await the patient's home medication reconciliation and restart the Lantus once her dosage is known. 3. Anxiety disorder. Continue on Xanax. 4. Chronic constipation. We will start the patient on a laxative regimen. 5. Metastatic lung cancer. The patient is followed by Dr. Allen as outpatient. 6. Chronic obstructive pulmonary disease. Stable. We will start the patient on bronchodilator therapy. 7. Chronic kidney disease stage 3. Stable. cc: Adilia Keating MD MTDD
[2019-09-02] MEDS ORDERED: NORCO-10 PO PRN (19:53)
[2019-09-02] MEDS ORDERED: LINZESS PO PRN (19:53)
[2019-09-02] MEDS ORDERED: LANTUS INSULIN SUBQ SCH (21:00)
[2019-09-02] MEDS: XANAX PO SCH (22:40)
[2019-09-02] MEDS: NEURONTIN PO SCH (22:41)
[2019-09-02] MEDS: MS CONTIN PO SCH (22:41)
[2019-09-02] MEDS: ELIQUIS PO SCH (22:41)
[2019-09-03] MEDS: MORPHINE IV PRN ×5 (02:17→23:08)
[2019-09-03] MEDS: DUONEB (A & A) INH SCH ×4 (03:19→22:50)
[2019-09-03] MEDS: HUMULIN R SUBQ SCH ×3 (06:54→19:04)
[2019-09-03] MEDS: PROTONIX PO SCH (06:54)
[2019-09-03 07:23] LABS: HEMATOCRIT 28.9 % (37.0-47.0); HEMOGLOBIN 9.4 g/dL (12.0-16.0); MCH 29.1 PG (27-31); MCHC 32.5 g/dL (33-37); MCV 89.5 FL (81-99); MPV 10.8 FL (7.4-10.4); RBC 3.23 XMIL (4.2-5.4); RDW 19.8 % (11.5-14.5)
[2019-09-03 07:53] LABS: CALCIUM 8.5 mg/dL (8.8-10.2); CREATININE 1.4 mg/dL (0.5-0.9)
[2019-09-03 07:55] LABS: CHOLESTEROL 179 mg/dL (0-200); HDL 42 mg/dL (45-65); LDL 106 mg/dL; TRIGLYCERIDES 154 mg/dL (35-135); VLDL 31 mg/dL
[2019-09-03] MEDS ORDERED: LANTUS INSULIN SUBQ SCH ×2 (09:00→21:00)
[2019-09-03] MEDS: COGENTIN PO SCH (09:54)
[2019-09-03] MEDS: NEURONTIN PO SCH ×2 (09:55→21:13)
[2019-09-03] MEDS: ELIQUIS PO SCH ×2 (09:55→21:13)
[2019-09-03] MEDS: MS CONTIN PO SCH ×2 (09:55→21:13)
[2019-09-03] MEDS: LASIX PO SCH (09:59)
[2019-09-03] MEDS ORDERED: HUMALOG IV SCH (11:30)
[2019-09-03] MEDS ORDERED: HUMALOG SUBQ SCH (11:45)
[2019-09-03] MEDS: HUMALOG SUBQ SCH ×2 (12:06→21:15)
--- NOTE | 2019-09-03 12:36 | ECHO REPORT ---
ORDER DATE: 09/03/2019 INDICATION FOR STUDY: Chest pain, hypertension, shortness of breath. This is a difficult study. The patient refused Optison. Morbidly obese. FINDINGS: 1. The right atrium appears normal in size at 3.8 cm. 2. Trace tricuspid regurgitation. RV systolic pressure of 42. 3. Normal RV size and systolic function. 4. No significant pulmonic insufficiency. 5. Mild left atrial enlargement with a volume index of 29. 6. No mitral valve prolapse. No significant mitral regurgitation. No mitral stenosis. 7. Normal LV size, end-diastolic dimension of 4.7. Normal wall thicknesses with a posterior and interventricular septal wall thickness of 0.9 cm each. The LV systolic function appears normal and greater than 55%. Again, delineation of the endocardial borders due to lack of echo contrast was somewhat difficult. The patient refused this. 8. Aortic valve opens well. Trace insufficiency. No stenosis. 9. Aorta appears normal in visualized segments. 10. No pericardial effusion seen. 11. Compared to the echo on file from February of 2019 on this patient, there does not appear to have been any significant change. cc: MD Adilia Stein MD
--- NOTE | 2019-09-03 14:35 | HEMO/ONC CONSULTATION ---
DATE: 09/03/2019 REQUESTING PHYSICIAN: Adilia Keating MD We appreciate this consult. CHIEF COMPLAINT: Non-small cell lung cancer. HISTORY OF PRESENT ILLNESS: Ms. Nix is a very pleasant 64-year-old female, well known to Dr. 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 The patient is currently being treated with carboplatin and Taxotere. The patient was scheduled for cycle 4 day 15 of carboplatin and Taxotere yesterday. She was treated with Taxotere and then began to complain of chest pressure and shortness of breath. The patient experienced some relief; therefore, continuation of treatment was planned. However, the patient got up to go to the bathroom and experienced significant chest pressure and profound shortness of breath. 911 was called, and the patient was admitted to [facility] with chest pain to rule out myocardial infarction. PAST MEDICAL HISTORY: 1. Non-small cell lung cancer. 2. Peripheral vascular disease. 3. Chronic kidney disease. 4. Pulmonary embolism. 5. Hypertension. 6. Diabetes mellitus, type 2. 7. Chronic constipation. 8. Anxiety disorder. 9. COPD. PAST SURGICAL HISTORY: 1. Lap band surgery. 2. Shoulder surgery. FAMILY HISTORY: Negative for any hematologic or oncologic disease. SOCIAL HISTORY: The patient quit smoking cigarettes 10 years ago. She currently uses no alcohol, tobacco, or illicit drugs. MEDICATIONS ON ADMISSION: 1. Novolin NPH insulin. 2. Meclizine. 3. Lantus insulin. 4. Eliquis. 5. Alprazolam. 6. Lidocaine/prilocaine topical cream. 7. Magic Mouthwash. 8. Protonix. 9. Compazine. 10. Diflucan. 11. Neurontin. 12. Dexilant. 13. MS Contin. 14. [place]. 15. Neurontin. ALLERGIES: Aspirins and contrast dye. REVIEW OF SYSTEMS: A 14 point review of systems was obtained and is negative except for mentioned in HPI. PHYSICAL EXAMINATION: Ms Nix is a very pleasant, 64-year-old female lying supine in bed in no immediate distress.Vital Signs: Temperature 98.0 degrees, blood pressure 121/61, heart rate 94, respirations 16, O2 saturation is 94% on room air. HEENT: Normocephalic, atraumatic. Mucous membranes are slightly pale and moist. Sclerae are anicteric. Extraocular movements intact. Neck: Supple. Lungs: Clear to auscultation bilaterally. Chest expansion is equal bilaterally. Cardiovascular: S1, S2 heard without murmur, rub, or gallop. Abdomen: Nondistended. Nontender. Bowel sounds positive all quadrants. No rebound or guarding noted. Extremities: Without clubbing or cyanosis. The patient does have 1+ bilateral lower extremity edema. Dermatologic: No rashes, bruises, or lesions. Neurologic: The patient is awake, alert, and oriented x3. She has no focal deficit. DIAGNOSTIC STUDIES: Hemoglobin is 9.4, hematocrit 28.9, white blood cell count is 3.00, platelets 182,000. Sodium 140, potassium 4.0, chloride 103, CO2 is 25, BUN 24, creatinine 1.4, glucose is 262, calcium is 8.5. CK is 43, troponins are less than 0.010. V/Q scan reveals low probability for pulmonary embolus. Chest x-ray reveals subsegmental atelectasis in the right base. Echocardiogram is within normal limits. ASSESSMENT AND PLAN: 1. T4N2 stage IIIB [id number] lung cancer of squamous cell histology. The patient is currently being treated with carboplatin and Taxotere. She underwent a cycle 4 day 15 of Taxotere. She did not receive carboplatin. We will follow along and provide treatment when appropriate. 2. Chest pain. V/Q scan was negative. Echocardiogram is negative. Troponins have been within normal limits. 3. Uncontrolled diabetes mellitus, type 2. The patient is on sliding scale insulin. At this time, we will continue to monitor. 4. Anxiety disorder. The patient is on Xanax as prescribed. 5. Chronic constipation. The patient is on a bowel regimen at this time. 6. Chronic obstructive pulmonary disease without exacerbation. The patient continues on bronchodilators. 7. Chronic kidney disease, stage 3, stable at this time. We will follow along with you and make further recommendations pending outcomes. The above reflects the history, exam, assessment, and plan of Dr. Rawls. Dictated by IVONNE Norman for Xiomy Rawls MD cc: IVONNE Norman MD Katherine Takundwa, MD I have seen and examined the patient and the above note reflects my H&P, assessment and plan. Xiomy Rawls MD [facility]
--- NOTE | 2019-09-03 19:30 | PROGRESS NOTE ---
DATE: 09/03/2019 SUBJECTIVE: The patient is standing up in the bathroom. She states that she feels a little bit better today. OBJECTIVE: Vital Signs: Temperature 98.6, blood pressure 149/60, heart rate 81, respirations 16, O2 saturation 99% on room air. General: This is a morbidly obese female lying in bed in no acute distress. Heart: S1, S2 normal. Regular rate and rhythm. Lungs: Equal air entry bilaterally. No wheezing, no rales. Abdomen: Positive bowel sounds. Soft, obese, nontender, nondistended. Extremities: 1+ edema bilaterally. Neurologic: The patient is alert and oriented x4. LABORATORY DATA: White blood cell count 3, hemoglobin 9.4, hematocrit 28, platelets 182. Sodium 140, potassium 4, chloride 103. CO2 is 25, BUN 24, creatinine 1.4, glucose 260. Troponins negative x2. V-Q scan: Low probability for pulmonary embolus. Echocardiogram: EF of 55%. ASSESSMENT AND PLAN: 1. Chest pain. The patient ruled out for myocardial infarction and her ventilation/perfusion scan was negative. We will continue on the current cardiac medications. 2. Metastatic lung cancer. The patient is followed by Dr. Allen. 3. Morbid obesity. The patient has been counseled about weight loss and proper diet. 4. Diabetes mellitus type 2. Continue on the current insulin regimen. 5. Anemia. Stable. 6. Chronic diastolic congestive heart failure. Continue on diuretic therapy. 7. Chronic pain. Continue on MS Contin. 8. Chronic constipation. The patient is having regular bowel movements. We will continue on Linzess as needed. 9. Disposition: Will consult with physical therapy. Hopefully, the patient can be discharged home tomorrow. cc: Adilia Keating MD MTDTaylor
[2019-09-03] MEDS: XANAX PO SCH (21:13)
[2019-09-04] MEDS: DUONEB (A & A) INH SCH ×2 (03:32→09:52)
[2019-09-04] MEDS: MORPHINE IV PRN (06:19)
[2019-09-04] MEDS: PROTONIX PO SCH (06:19)
[2019-09-04 07:27] LABS: BASO# 0.01 X1000 (0.0-0.2); BASO% 0.2 % (0.0-0.8); EOS# 0.01 X1000 (0.0-0.7); EOS% 0.2 % (0.0-10.0); HEMATOCRIT 29.2 % (37.0-47.0); HEMOGLOBIN 9.2 g/dL (12.0-16.0); LYMPH# 1.48 X1000 (1.2-3.4); LYMPH% 35.9 % (20.5-51.1); MCHC 31.5 g/dL (33-37); MONO# 0.13 X1000 (0.11-0.59); MONO% 3.2 % (1.7-9.3); NEUT# 2.49 X1000 (1.4-6.5); NEUT% 60.5 % (42.2-75.2); PLT 190 X1000 (130-400); RBC 3.28 XMIL (4.2-5.4); RDW 19.9 % (11.5-14.5); WBC 4.12 X1000 (4.8-10.8)
[2019-09-04 07:34] VITALS: BP 102/51
[2019-09-04 07:54] LABS: ALB/GLOB RATIO 1.4; ALBUMIN 3.6 g/dL (3.5-5.0); CALCIUM 7.9 mg/dL (8.8-10.2); CREATININE 1.5 mg/dL (0.5-0.9); POTASSIUM 3.7 mmol/L (3.5-5.1); TOTAL BILIRUBIN 0.24 mg/dL (0.20-1.00); TOTAL PROTEIN 6.2 g/dL (6.3-8.3)
[2019-09-04] MEDS: LASIX PO SCH (09:19)
[2019-09-04] MEDS: MS CONTIN PO SCH (09:19)
[2019-09-04] MEDS: ELIQUIS PO SCH (09:20)
[2019-09-04] MEDS: NEURONTIN PO SCH (09:20)
[2019-09-04] MEDS: COGENTIN PO SCH (09:20)
[2019-09-04] MEDS: HUMALOG SUBQ SCH (09:20)
--- NOTE | 2019-09-04 14:38 | Extremity Venous Study ---
PROCEDURE NAME: Venous U/S Bilateral Legs - 09/03/2019 PROCEDURE PERFORMED: Bilateral lower extremity venous duplex and color flow imaging study using the Vaioni vivid E9 ultrasound System with a 9L-D transducer. REFERRING PHYSICIAN: Dr. Keating. PATIENT INFORMATION: A 64-year-old female. PANEL FITTER: Laura Harding RVT. INDICATIONS: Pain and edema, bilateral lower extremities, suggestive of deep venous thrombosis. FINDINGS: The right common femoral vein and its branches, deep and superficial femoral veins were satisfactorily imaged. They had flow through them and were compressible. Right popliteal vein and the deep veins below the right knee were all compressible and had flow through them. The superficial veins of the right lower extremity were compressible throughout their length. The left common femoral vein and its branches, deep and superficial femoral veins were also satisfactorily imaged. They had flow through them and were compressible. Left popliteal vein and the deep veins below the left knee were all compressible and had flow through them. The superficial veins of the left lower extremity were compressible throughout their length. INTERPRETATION: No evidence of acute deep or superficial venous thrombosis of the bilateral lower extremities. cc: MD Adilia Downey MD
--- NOTE | 2019-09-07 18:48 | DISCHARGE SUMMARY ---
ADMISSION DATE: 09/02/2019 DISCHARGE DATE: 09/04/2019 FINAL DISCHARGE DIAGNOSES: 1. Atypical chest pain. 2. Metastatic lung cancer. 3. Morbid obesity. 4. Diabetes mellitus type 2. 5. History of pulmonary embolism. 6. Chronic diastolic congestive heart failure. 7. Chronic pain. 8. Chronic constipation. CONSULTATION: Oncology consultation with Dr. Rawls. HOSPITAL COURSE: Ms. Nix is a 64-year-old female with a history of pulmonary embolism on anticoagulation, chronic constipation, morbid obesity, and metastatic lung cancer who presented to the ER with a chief complaint of chest pain. Cardiac enzymes and an EKG were performed that were noted to be negative. The patient was admitted to rule out NC and PE. A V/Q scan was done that revealed a low probability for PE. Also, venous Dopplers of the lower extremity were done that were noted to be negative for DVT. The patient's cardiac enzymes were also noted to be negative. She was ruled out for NC. Physical Therapy was consulted to assist with ambulation. By the following day, the patient was no longer having chest pain. She was ultimately cleared for discharge home on 09/04/2019. DISCHARGE MEDICATIONS: 1. Eliquis 5 mg oral twice a day. 2. Benztropine 1 mg oral daily. 3. Neurontin 100 mg oral twice a day. 4. [place] 10/325 one tab oral every 6 hours p.r.n. for pain. 5. Lantus 35 units subcutaneous at bedtime. 6. Linzess 145 mcg oral daily p.r.n. 7. Morphine sulfate ER 15 mg oral twice a day. 8. Omeprazole 40 mg p.o. daily. 9. Xanax 1.5 mg oral at bedtime. 10. Lasix 80 mg p.o. daily. 11. NovoLog sliding scale. DISCHARGE DIET: 1800 ADA diet. ACTIVITY: As tolerated. FOLLOWUP INSTRUCTIONS: The patient will need to follow up with Dr. Allen as scheduled by his clinic. The patient will need to follow up with her primary care physician in 2 weeks. cc: Adilia Keating MD
== END 2019-09-04 13:01 | disposition home health service (06) | DRG 313 ==
LOC: SUPCPDRO → ED 12:14 → EDIPHOLD 16:57 → 3N 22:01
PROVIDERS: ATTEND Internal Medicine

== ENCOUNTER 2019-10-03 11:53 | Inpatient (IN) ==
[2019-10-03 12:37] LABS: BASO# 0.02 X1000 (0.0-0.2); BASO% 0.3 % (0.0-0.8); EOS# 0.45 X1000 (0.0-0.7); EOS% 6.9 % (0.0-10.0); HEMATOCRIT 29.3 % (37.0-47.0); HEMOGLOBIN 9.1 g/dL (12.0-16.0); IMM GRAN# 0.02 X1000 (0.0-0.04); IMM GRAN% 0.3 % (0.0-0.5); LYMPH# 1.89 X1000 (1.2-3.4); LYMPH% 28.9 % (20.5-51.1); MCH 25.9 PG (27-31); MCHC 31.1 g/dL (33-37); MCV 83.5 FL (81-99); MONO# 0.48 X1000 (0.11-0.59); MONO% 7.3 % (1.7-9.3); MPV 10.7 FL (7.4-10.4); NEUT# 3.69 X1000 (1.4-6.5); NEUT% 56.3 % (42.2-75.2); PLT 227 X1000 (130-400); RBC 3.51 XMIL (4.2-5.4); RDW 19.2 % (11.5-14.5); WBC 6.55 X1000 (4.8-10.8)
[2019-10-03 12:56] LABS: ALB/GLOB RATIO 1.3; ALBUMIN 3.6 g/dL (3.5-5.0); CALCIUM 9.1 mg/dL (8.8-10.2); CREATININE 1.5 mg/dL (0.5-0.9); POTASSIUM 3.6 mmol/L (3.5-5.1); TOTAL BILIRUBIN 0.2 mg/dL (0.20-1.00); TOTAL PROTEIN 6.3 g/dL (6.3-8.3)
[2019-10-03 13:21] LABS: ALLEN TEST YES; BE 1.1 mmoll (-3.0-3.0); BLOOD TYPE ARTERIAL; HCO3-(ACT) 25.7 mmoll (20.0-26.0); METHB 0.5 % (0.0-1.5); O2(CT) 12.7 mL/dL (15.0-23.0); O2HB 92.8 % (95.0-99.0); PCO2(98.6) 49 mmHg (35-45); PO2(98.6) 66 mmHg (60-100); SAMPLE BLOOD; SAO2 94.5 % (95.0-100.0); THB 9.7 g/dL (11.5-17.4); pH(98.6) 7.35 (7.35-7.45)
[2019-10-03 13:22] LABS: MODALITY ROOM AIR
[2019-10-03 13:24] LABS: CK INDEX 0.2 (0.0-2.5); CK-MB 1.94 ng/mL (0.0-5.0)
[2019-10-03 13:55] LABS: URINE SOURCE CLEAN CATCH
[2019-10-03 13:56] LABS: BILIRUBIN URINE NEGATIVE (NEGATIVE); BLOOD URINE NEGATIVE (NEGATIVE); COLOR YELLOW; GLUCOSE URINE NEGATIVE (NEGATIVE); KETONE URINE NEGATIVE (NEGATIVE); LEUKOCYTES URINE NEGATIVE (NEGATIVE); NITRITE URINE NEGATIVE (NEGATIVE); PH URINE 5.5; PROTEIN URINE NEGATIVE (NEGATIVE); SP GRAVITY URINE 1.012; TURBIDITY URINE CLEAR (CLEAR); UR EPITHELIAL CELLS <10 /HPF (<10); URINE BACTERIA NEGATIVE /HPF; URINE RBC <10 /HPF (<10); URINE WBC <10 /HPF (<10); UROBILINOGEN URINE NORMAL (NORMAL)
[2019-10-04 06:56] LABS: HEMATOCRIT 32.5 % (37.0-47.0); HEMOGLOBIN 10.2 g/dL (12.0-16.0); IMM GRAN# 0.03 X1000 (0.0-0.04); IMM GRAN% 0.6 % (0.0-0.5); LYMPH# 0.95 X1000 (1.2-3.4); LYMPH% 18.8 % (20.5-51.1); MCH 26.2 PG (27-31); MCHC 31.4 g/dL (33-37); MCV 83.3 FL (81-99); MONO# 0.02 X1000 (0.11-0.59); MONO% 0.4 % (1.7-9.3); NEUT# 4.06 X1000 (1.4-6.5); NEUT% 80.2 % (42.2-75.2); PLT 248 X1000 (130-400); RDW 19.2 % (11.5-14.5); WBC 5.06 X1000 (4.8-10.8)
[2019-10-04 07:15] LABS: HEMOGLOBIN A1C 6.5 % (4.8-6.0)
[2019-10-04 07:34] LABS: ALB/GLOB RATIO 1.1; ALBUMIN 3.9 g/dL (3.5-5.0); CALCIUM 9.7 mg/dL (8.8-10.2); CREATININE 1.4 mg/dL (0.5-0.9); POTASSIUM 4.8 mmol/L (3.5-5.1); TOTAL BILIRUBIN 0.22 mg/dL (0.20-1.00); TOTAL PROTEIN 7.3 g/dL (6.3-8.3)
[2019-10-05 06:15] LABS: CALCIUM 9.7 mg/dL (8.8-10.2); CREATININE 1.3 mg/dL (0.5-0.9); POTASSIUM 5.2 mmol/L (3.5-5.1)
[2019-10-06 05:33] LABS: HEMATOCRIT 30.3 % (37.0-47.0); HEMOGLOBIN 9.4 g/dL (12.0-16.0); IMM GRAN# 0.03 X1000 (0.0-0.04); IMM GRAN% 0.4 % (0.0-0.5); LYMPH# 1.45 X1000 (1.2-3.4); LYMPH% 20.1 % (20.5-51.1); MCH 25.3 PG (27-31); MCV 81.7 FL (81-99); MONO# 0.43 X1000 (0.11-0.59); MPV 10.6 FL (7.4-10.4); NEUT# 5.31 X1000 (1.4-6.5); NEUT% 73.5 % (42.2-75.2); PLT 251 X1000 (130-400); RBC 3.71 XMIL (4.2-5.4); RDW 19.2 % (11.5-14.5); WBC 7.22 X1000 (4.8-10.8)
[2019-10-06 06:24] LABS: CALCIUM 9.9 mg/dL (8.8-10.2); CREATININE 1.7 mg/dL (0.5-0.9); POTASSIUM 4.1 mmol/L (3.5-5.1)
[2019-10-07 05:37] LABS: CALCIUM 9.5 mg/dL (8.8-10.2); CREATININE 1.5 mg/dL (0.5-0.9); POTASSIUM 4.4 mmol/L (3.5-5.1)
[2019-10-08 05:30] LABS: HEMATOCRIT 32.3 % (37.0-47.0); HEMOGLOBIN 10.1 g/dL (12.0-16.0); LYMPH# 0.89 X1000 (1.2-3.4); LYMPH% 15.2 % (20.5-51.1); MCH 25.1 PG (27-31); MCHC 31.3 g/dL (33-37); MCV 80.3 FL (81-99); MONO# 0.22 X1000 (0.11-0.59); MONO% 3.8 % (1.7-9.3); MPV 10.3 FL (7.4-10.4); NEUT# 4.74 X1000 (1.4-6.5); PLT 266 X1000 (130-400); RBC 4.02 XMIL (4.2-5.4); RDW 19.8 % (11.5-14.5); WBC 5.85 X1000 (4.8-10.8)
[2019-10-08 06:16] LABS: CALCIUM 9.2 mg/dL (8.8-10.2); CREATININE 1.7 mg/dL (0.5-0.9)
[2019-10-08 11:39] VITALS: BP 130/50
== END 2019-10-08 14:21 | disposition home or self-care (01) | DRG 191 ==
LOC: ED 11:53 → 1N 16:24
PROVIDERS: ATTEND Internal Medicine